=== PATIENT | male | born 1970 | race Caucasian/White ===

== ENCOUNTER → 2020-10-12 | Outpatient (CLI) | payer OTHER ==
--- NOTE | 2020-10-12 16:15 | RAD ---
EXAM: XR KNEE_LT 1-2 VIEWS, XR LUMBAR SPINE 2-3V 10/12/2020 9:59 AM CLINICAL INDICATION: Left knee pain, lower back pain COMPARISON: None TECHNIQUE: 2 views of lumbar spine and 2 views of the left knee FINDINGS: Lumbar spine: There 5 nonrib-bearing lumbar vertebral bodies. No acute fracture. Alignment is normal. There is mild disc space during with anterior osteophytes at multiple levels. There is multilevel ad vanced facet arthrosis, greatest at L4-L5 and L5-S1. Left knee: No acute fracture. Alignment is normal. Joint spaces are maintained. No joint effusion. IMPRESSION: 1. Mild degenerative disc disease. Multilevel facet arthrosis, greatest in the lower lumbar spine. 2. Normal left knee radiograph. Electronically signed by: Delia Rose MD (10/12/2020 4:12 PM) [id number]
== END ==
LOC: PF 08:11
PROVIDERS: ATTEND Anesthesiology Pain Medicine
DX: Z02.71 Encounter for disability determination (principal); J44.9 Chronic obstructive pulmonary disease, unspecified; M47.817 Spondylosis without myelopathy or radiculopathy, lumbosacral region; M51.37 Other intervertebral disc degeneration, lumbosacral region; M25.78 Osteophyte, vertebrae
CPT/HCPCS: 72100; 73560; 94060; 94640; 94729; 94664